=== PATIENT | male | born 1950 | race American Indian/Alaskan Native ===

== ENCOUNTER → 2017-03-15 | Emergency (ER) | payer OTHER, MEDICARE | END | disposition disaster alternative care site (69) | LOC: GAMB 21:24 | DX: E11.649 Type 2 diabetes mellitus with hypoglycemia without coma (principal); E11.69 Type 2 diabetes mellitus with other specified complication; Z79.4 Long term (current) use of insulin; Z79.899 Other long term (current) drug therapy ==